=== PATIENT | female | born 1965 | race Caucasian/White ===

== ENCOUNTER 2022-09-01 08:32 | Outpatient (CLI) | payer OTHER ==
[2022-09-01 12:20] LABS: BASOPHILS % (AUTO) 0.4 %; EOSINOPHILS # (AUTO) 0.1 10^3/uL (0.0-0.7); EOSINOPHILS % (AUTO) 1.2 %; HCT - HEMATOCRIT 44.9 % (37.0-47.0); HGB - HEMOGLOBIN 14.4 g/dL (12.0-16.0); LYMPHOCYTES # (AUTO) 2.1 10^3/uL (1.5-3.5); LYMPHOCYTES % (AUTO) 30.5 %; MEAN CORPUSCULAR HEMOGLOBIN 29.7 pg (27.0-31.0); MEAN CORPUSCULAR HGB CONC 32.1 g/dL (32.0-36.0); MEAN CORPUSCULAR VOLUME 92.6 fL (81.0-99.0); MEAN PLATELET VOLUME 9.6 fL (7.9-10.8); MONOCYTES # (AUTO) 0.6 10^3/uL (0.0-1.0); MONOCYTES % (AUTO) 9.2 %; NEUTROPHILS # (AUTO) 3.9 10^3/uL (1.5-6.6); NEUTROPHILS % (AUTO) 58.4 %; PLT - PLATELET COUNT 399 10^3/uL (130-450); RED BLOOD COUNT 4.85 10^6/uL (4.20-5.40); WHITE BLOOD COUNT 6.7 x10^3/uL (4.8-10.8)
[2022-09-01 12:53] LABS: THYROID STIMULATING HORMONE 2.53 uIU/mL (0.34-5.60)
[2022-09-01 13:01] LABS: ALBUMIN 4.2 g/dL (3.2-5.5); ALBUMIN/GLOBULIN RATIO 0.9 (1.0-2.2); ALKALINE PHOSPHATASE 69 IU/L (42-121); ALT ALANINE AMINOTRANSFERASE 25 IU/L (10-60); AST ASPARTATE AMINOTRANSFERASE 20 IU/L (10-42); BILIRUBIN,TOTAL 0.6 mg/dL (0.2-1.0); BUN - BLOOD UREA NITROGEN 22 mg/dL (6-20); CALCIUM 9.6 mg/dL (8.5-10.3); CARBON DIOXIDE - CO2 26 mmol/L (21-32); CHLORIDE 104 mmol/L (101-111); CHOL/HDL RATIO 3.5 (<4.4); CHOLESTEROL 245 mg/dL; CREATININE 0.8 mg/dL (0.4-1.0); CRP - C-REACTIVE PROTEIN 10.9 mg/dL (0-1.0); GFR - MDRD 74 (>89); GLUCOSE 105 mg/dL (70-100); HDL CHOLESTEROL 71 mg/dL; LDL CHOLESTEROL,CALCULATED 153 mg/dL; LDL/HDL RATIO 2.2 (<4.4); POTASSIUM 4.3 mmol/L (3.5-5.0); SODIUM 140 mmol/L (135-145); TOTAL PROTEIN 8.8 g/dL (6.7-8.2); TRIGLYCERIDES 103 mg/dL; URIC ACID 5.6 mg/dL (2.6-7.2); VLDL CHOLESTEROL 21 mg/dL
[2022-09-01 13:11] LABS: ESTIMATED AVERAGE GLUCOSE 128 mg/dL (70-100); HEMOGLOBIN A1c% 6.1 % (4.27-6.07)
[2022-09-01 13:25] LABS: RHEUMATOID FACTOR NEGATIVE (Negative)
[2022-09-02 08:10] LABS: VARICELLA-ZOSTER AB IGG 257 index (Immune >165)
[2022-09-02 17:08] LABS: ANTI-DNA (DS) AB QN 3 IU/mL (0-9)
[2022-09-04 15:08] LABS: CYCLIC CITRULLINATED PEP IGG/A 9 units (0-19)
== END 2022-09-01 08:33 | disposition home or self-care (01) ==
LOC: LAB.N 08:32
PROVIDERS: ATTEND Nurse Practitioner
DX: R53.83 Other fatigue (principal); M16.0 Bilateral primary osteoarthritis of hip; Z11.59 Encounter for screening for other viral diseases; Z13.220 Encounter for screening for lipoid disorders; E66.9 Obesity, unspecified
CPT/HCPCS: 36415; 80053; 80061; 81599; 83036; 83721; 84443; 84550; 85025; 85651; 86140; 86200; 86225; 86430; 86787